=== PATIENT | male | born 1995 | race Caucasian/White ===

== ENCOUNTER 2025-05-22 00:25 | Inpatient (IN) | payer BC ==
[~2025-05-22] VITALS: Ht 175.3 cm; Wt 122.5 kg
[2025-05-22] MEDS ORDERED: LORAZEPAM 2 MG/1 ML VIAL ONE (00:41)
[2025-05-22] MEDS ORDERED: ONDANSETRON 4 MG/2 ML VIAL ONE (00:41)
[2025-05-22 00:42] LABS: PLATELET COUNT (AUTO) 267 K/uL (152-348); RED BLOOD CELL COUNT(AUTO) 5.86 MIL/uL (4.06-5.63); RED CELL DISTRIBUTION WIDTH 12.6 % (12.1-16.2); WHITE BLOOD COUNT (AUTO) 11.6 K/uL (3.6-10.2)
[2025-05-22] MEDS: IV NORMAL SALINE 500 ML BAG IV ONE ×2 (00:45→01:17)
[2025-05-22] MEDS: LORAZEPAM 2 MG/1 ML VIAL IV ONE (00:45)
[2025-05-22] MEDS: ONDANSETRON 4 MG/2 ML VIAL IV ONE (00:45)
[2025-05-22 00:50] LABS: ETHANOL < 3 MG/DL (0-10)
[2025-05-22 00:52] LABS: SODIUM SERUM 142.0 mmol/L (136-145)
[2025-05-22 00:53] LABS: CREATININE 1.0 mg/dL (0.6-1.3); UREA NITROGEN, BLOOD 12.0 mg/dL (7-18)
[2025-05-22] MEDS ORDERED: RISP4TAB4 PO (00:53)
[2025-05-22] MEDS ORDERED: TRAZ150T75 PO (00:53)
[2025-05-22] MEDS ORDERED: HYDR50TA62 PO (00:53)
[2025-05-22] MEDS ORDERED: DIVA500T2 PO (00:53)
[2025-05-22 00:58] LABS: LACTIC ACID 3.4 mmol/L (0.4-2.0)
[2025-05-22 01:01] LABS: CREATINE KINASE, TOTAL 131 U/L (39-308)
[2025-05-22 01:02] LABS: ASPARTATE AMINOTRANSFERASE 30 U/L (15-37); TOTAL PROTEIN, SERUM 7.8 g/dL (6.4-8.2)
[2025-05-22 01:08] LABS: VALPROIC ACID 181.0 ug/mL (50-100)
[2025-05-22] MEDS: POTASSIUM CHLORIDE 50 ML IV SCH (01:16)
[2025-05-22 02:10] LABS: *BILIRUBIN,URIN NEGATIVE (NEGATIVE); *CLARITY,URINE CLEAR (CLEAR); *COLOR,URINE LIGHT YELLOW (YELLOW); *KETONES,URINE TRACE (NEGATIVE); *PROTEIN,URINE NEGATIVE (NEGATIVE); *UROBILINOGEN,URINE 0.2 E.U./dl (NORMAL); LEUKOCYTE ESTERASE ,URINE NEGATIVE (NEGATIVE); NITRITE, URINE NEGATIVE (NEGATIVE); UGLUCOSE NEGATIVE (NEGATIVE)
[2025-05-22 02:14] LABS: *BLOOD, URINE TRACE (NEGATIVE)
[2025-05-22 02:24] LABS: *AMPHETAMINE, URINE NEGATIVE (NEGATIVE); *BARBITURATE, URINE NEGATIVE (NEGATIVE); *BENZODIAZEPINE, URINE NEGATIVE (NEGATIVE); *CANNABINOID, URINE NEGATIVE (NEGATIVE); *COCCAINE, URINE NEGATIVE (NEGATIVE); *OPIATE, URINE NEGATIVE (NEGATIVE); *PHENCYCLIDINE SCREEN,URINE NEGATIVE (NEGATIVE); FENTANYL, URINE NEGATIVE (NEGATIVE)
[2025-05-22] MEDS ORDERED: MAGNESIUM HYDROXIDE 30 ML LIQUID UDC PO PRN (04:15)
[2025-05-22] MEDS ORDERED: ONDANSETRON 4 MG/2 ML VIAL IV PRN (04:15)
[2025-05-22 04:36] LABS: PLATELET COUNT (AUTO) 240 K/uL (152-348); RED BLOOD CELL COUNT(AUTO) 5.49 MIL/uL (4.06-5.63); RED CELL DISTRIBUTION WIDTH 12.8 % (12.1-16.2); WHITE BLOOD COUNT (AUTO) 9.2 K/uL (3.6-10.2)
[2025-05-22 04:56] LABS: ASPARTATE AMINOTRANSFERASE 24.0 U/L (15-37); CREATININE 1.0 mg/dL (0.6-1.3); SODIUM SERUM 145.0 mmol/L (136-145); TOTAL PROTEIN, SERUM 7.0 g/dL (6.4-8.2); UREA NITROGEN, BLOOD 10.0 mg/dL (7-18); VALPROIC ACID 151.0 ug/mL (50-100)
[2025-05-22 05:00] VITALS: BP 108/68
[2025-05-22 06:45] VITALS: BP 110/60; TEMP 98.6; O2SAT 96
[2025-05-22] MEDS: ACETAMINOPHEN 325 MG TABLET PO PRN (07:07)
[2025-05-22 08:00] VITALS: BP 119/69; TEMP 97.8; O2SAT 96
[2025-05-22 09:07] LABS: ASPARTATE AMINOTRANSFERASE 23.0 U/L (15-37); CREATININE 1.1 mg/dL (0.6-1.3); SODIUM SERUM 143.0 mmol/L (136-145); TOTAL PROTEIN, SERUM 7.0 g/dL (6.4-8.2); UREA NITROGEN, BLOOD 7.0 mg/dL (7-18); VALPROIC ACID 112.0 ug/mL (50-100)
[2025-05-22] MEDS: IV LACTATED RINGERS SOLUTION 1,000 ML IV PRN (09:32)
[2025-05-22] MEDS: PANTOPRAZOLE SODIUM 40 MG VIAL IV SCH (09:32)
[2025-05-22 12:00] VITALS: BP 116/67; TEMP 97.9; O2SAT 96
[2025-05-22] MEDS ORDERED: DIVA500T54 PO (12:33)
[2025-05-22 13:05] LABS: ASPARTATE AMINOTRANSFERASE 22.0 U/L (15-37); CREATININE 1.2 mg/dL (0.6-1.3); SODIUM SERUM 143.0 mmol/L (136-145); TOTAL PROTEIN, SERUM 7.1 g/dL (6.4-8.2); UREA NITROGEN, BLOOD 5.0 mg/dL (7-18); VALPROIC ACID 90.0 ug/mL (50-100)
[2025-05-22 16:11] VITALS: BP 108/67; TEMP 98.1; O2SAT 95
[2025-05-22] MEDS: CLOTRIMAZOLE 1% CREAM 30 GM TUBE TOP SCH (16:51)
[2025-05-22 17:01] LABS: ASPARTATE AMINOTRANSFERASE 21 U/L (15-37); CREATININE 1.0 mg/dL (0.6-1.3); SODIUM SERUM 142 mmol/L (136-145); TOTAL PROTEIN, SERUM 6.9 g/dL (6.4-8.2); UREA NITROGEN, BLOOD 6 mg/dL (7-18); VALPROIC ACID 76 ug/mL (50-100)
[2025-05-22] MEDS: NICOTINE 21 MG/24HR PATCH TD SCH (17:53)
[2025-05-22] MEDS ORDERED: LORAZEPAM 0.5 MG TABLET PO PRN (18:30)
[2025-05-22 20:00] VITALS: BP 112/61; TEMP 98.6; O2SAT 95
[2025-05-22] MEDS: TRAZODONE 100 MG TABLET PO SCH (20:24)
[2025-05-22 21:01] LABS: ASPARTATE AMINOTRANSFERASE 21.0 U/L (15-37); CREATININE 1.1 mg/dL (0.6-1.3); SODIUM SERUM 141.0 mmol/L (136-145); TOTAL PROTEIN, SERUM 7.1 g/dL (6.4-8.2); UREA NITROGEN, BLOOD 7.0 mg/dL (7-18); VALPROIC ACID 67.0 ug/mL (50-100)
[2025-05-22] MEDS: DIVALPROEX 500 MG TABLET.DR PO SCH (22:17)
[2025-05-23 00:15] VITALS: BP 124/76; TEMP 97.7; O2SAT 95
[2025-05-23 04:00] VITALS: BP 120/78; TEMP 98.4; O2SAT 96
[2025-05-23 07:16] LABS: PLATELET COUNT (AUTO) 231 K/uL (152-348); RED BLOOD CELL COUNT(AUTO) 5.59 MIL/uL (4.06-5.63); RED CELL DISTRIBUTION WIDTH 13.1 % (12.1-16.2); WHITE BLOOD COUNT (AUTO) 8.1 K/uL (3.6-10.2)
[2025-05-23 07:30] LABS: CREATININE 0.9 mg/dL (0.6-1.3); SODIUM SERUM 141.0 mmol/L (136-145); UREA NITROGEN, BLOOD 8.0 mg/dL (7-18)
[2025-05-23 08:00] VITALS: BP 127/69; TEMP 97.6; O2SAT 96
[2025-05-23] MEDS: SERTRALINE HCL 50 MG TABLET PO SCH (08:58)
[2025-05-23 11:00] VITALS: BP 104/65; TEMP 97.6; O2SAT 95
[2025-05-23 16:00] VITALS: BP 136/80; TEMP 98; O2SAT 94
[2025-05-23 20:10] VITALS: BP 117/80; TEMP 98.1; O2SAT 94
[2025-05-24] VITALS (7 sets, daily range): BP systolic 104–131; BP diastolic 66–89; TEMP 97.6–98.3; O2SAT 95–99
[2025-05-24] MEDS: PANTOPRAZOLE SODIUM 40 MG TABLET.DR PO SCH (06:22)
[2025-05-25] MEDS: TEMAZEPAM 7.5 MG CAPSULE PO PRN (01:41)
[2025-05-25 04:00] VITALS: BP 116/77; TEMP 97.9; O2SAT 98
[2025-05-25 08:04] VITALS: BP 113/70; TEMP 98.3; O2SAT 96
[2025-05-25 12:00] VITALS: BP 106/69; TEMP 98.2; O2SAT 95
[2025-05-25 16:04] VITALS: BP 111/72; TEMP 97.6; O2SAT 96
== END 2025-05-25 19:40 | DRG 918 ==
LOC: ER 00:31 → TELE3 00:39 → MEDSURG3 05-25 11:00
PROVIDERS: ADMIT Nurse Practitioner Family; ATTEND Nurse Practitioner Acute Care
DX: T43.592A Poisoning by other antipsychotics and neuroleptics, intentional self-harm, initial encounter (principal); E87.21 Acute metabolic acidosis; E44.1 Mild protein-calorie malnutrition; D68.59 Other primary thrombophilia; E88.09 Other disorders of plasma-protein metabolism, not elsewhere classified; F31.4 Bipolar disorder, current episode depressed, severe, without psychotic features; E66.9 Obesity, unspecified; R00.0 Tachycardia, unspecified; Y92.89 Other specified places as the place of occurrence of the external cause; F17.210 Nicotine dependence, cigarettes, uncomplicated; Z68.39 Body mass index [BMI] 39.0-39.9, adult; Z79.899 Other long term (current) drug therapy; R09.02 Hypoxemia; R94.31 Abnormal electrocardiogram [ECG] [EKG]
CPT/HCPCS: 36415; 80164; 83605; 83735; 84100; 84443; 85025; 93005; A4606; A4663; G0378; G0480; J2060; J2405; J2470; J3480; J7040; J7120